=== PATIENT | male | born 1975 | race Caucasian/White ===

== ENCOUNTER 2019-12-15 11:12 | Emergency (ER) | payer OTHER ==
[2019-12-15] MEDS ORDERED: ASPIRIN 81 MG PO STA (11:35)
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
[2019-12-15 11:59] LABS: Basophils # (A) 0.1 k/uL (0-0.2); Basophils % (A) 1 %; Eosinophils # (A) 0.3 k/uL (0-0.7); Eosinophils % (A) 4 %; HCT 51.6 % (39.0-53.0); HGB 17.1 gm/dL (13.0-17.5); Lymphocytes # (A) 2.2 k/uL (1.0-4.8); Lymphocytes % (A) 28 %; MCH 28.2 pg (25.0-35.0); MCHC 33.1 g/dL (31.0-37.0); MCV 85.4 fL (80.0-100.0); Mean Platelet Volume 7.7; Monocytes # (A) 0.4 k/uL (0-1.0); Monocytes % (A) 5 %; Neutrophils # (A) 4.8 k/uL (1.3-7.7); Neutrophils % (A) 61 %; Platelet Count 206 k/uL (150-450); RBC 6.04 m/uL (4.30-5.90); RDW 13.2 % (11.5-15.5); WBC 7.9 k/uL (3.8-10.6)
[2019-12-15 12:12] LABS: ALT 26 U/L (4-49); AST 25 U/L (17-59); African American GFR (CKD) 78 (>60 ml/min/1.73 sqM); Albumin 4.4 g/dL (3.5-5.0); Alcohol <10 mg/dL; Alkaline Phosphatase 75 U/L (38-126); Anion Gap 8 mmol/L; Blood Urea Nitrogen 17 mg/dL (9-20); Calcium 9.5 mg/dL (8.4-10.2); Carbon Dioxide 27 mmol/L (22-30); Chloride 104 mmol/L (98-107); Glucose 113 mg/dL (74-99); Non-African American GFR(CKD) 67 (>60 ml/min/1.73 sqM); Potassium 4.5 mmol/L (3.5-5.1); Sodium 139 mmol/L (137-145); Total Bilirubin 0.6 mg/dL (0.2-1.3); Total Protein 7.8 g/dL (6.3-8.2)
[2019-12-15 12:16] LABS: D-Dimer 0.38 mg/L FEU (<0.60); INR 0.9 (<1.2); Partial Thromboplastin Time 23.4 sec (22.0-30.0); Prothrombin Time 9.6 sec (9.0-12.0)
[2019-12-15 12:19] LABS: Amphetamine Screen,Urine Not Detected (NotDetected); Barbiturate Screen,Urine Not Detected (NotDetected); Benzodiazepines Screen,Urine Not Detected (NotDetected); Cocaine Screen,Urine Not Detected (NotDetected); Methadone Screen, Urine Not Detected (NotDetected); Opiate Screen,Urine Not Detected (NotDetected); Oxycodone Screen, Urine Not Detected (NotDetected); Phencyclidine Screen,Urine Not Detected (NotDetected); Tricyclic Antidepressant,Urine Not Detected (NotDetected); Urn Cannabinoid Scrn Not Detected (NotDetected)
[2019-12-15 12:33] LABS: Mucus,Urine Rare /hpf; RBC,Urine 2 /hpf (0-5); WBC,Urine <1 /hpf (0-5)
[2019-12-15 12:41] LABS: Appearance,Urine Clear (Clear); Bilirubin,Urine Negative (Negative); Blood,Urine Negative (Negative); Color,Urine Yellow; Glucose,Urine (UA) Negative (Negative); Ketones,Urine Negative (Negative); Nitrite,Urine Negative (Negative); Protein,Urine Negative (Negative); Urobilinogen,Urine <2.0 mg/dL (<2.0)
[2019-12-15 12:42] LABS: Leukocyte Esterase,Urine Negative (Negative)
--- NOTE | 2019-12-15 12:47 | XR ---
EXAMINATION TYPE: XR chest 2V DATE OF EXAM: 12/15/2019 COMPARISON: NONE HISTORY: Chest pain. TECHNIQUE: Frontal and lateral views of the chest are obtained. FINDINGS: There is no focal air space opacity, pleural effusion, or pneumothorax seen. The cardiac silhouette size is mildly enlarged. Overlying EKG leads are present. The osseous structures are inta ct. IMPRESSION: Mild cardiomegaly without acute pulmonary process.
--- NOTE | 2019-12-15 13:16 | US ---
EXAMINATION TYPE: US venous doppler duplex LE LT DATE OF EXAM: 12/15/2019 1:06 PM COMPARISON: NONE CLINICAL HISTORY: pain, no injury. No redness. No swelling. No blood thinners. No injury SIDE PERFORMED: Left TECHNIQUE: The lower extremity deep venous system is examined utilizing real time linear array sonog payton with graded compression, doppler sonography and color-flow sonography. VESSELS IMAGED: External Iliac Vein (EIV) Common Femoral Vein Deep Femoral Vein Greater Saphenous Vein * Femoral Vein Popliteal Vein Small Saphenous Vein * Proximal Calf Veins (* superficial vessels) Left Leg: Negative for DVT Grayscale, color doppler, spectral doppler imaging performed of the deep veins of the left lower extr emity. There is normal flow, compressibility, vascular waveforms. IMPRESSION: No ultrasound evidence for acute DVT in left lower extremity.
[2019-12-15 13:31] VITALS: BP 137/82; PULSE 67; RESP 16; TEMP 98
== END 2019-12-15 13:29 | disposition left against medical advice (07) ==
LOC: EC 11:12
DX: R07.9 Chest pain, unspecified (principal); R55 Syncope and collapse; M79.605 Pain in left leg; I11.9 Hypertensive heart disease without heart failure; Z53.29 Procedure and treatment not carried out because of patient's decision for other reasons
CPT/HCPCS: 36415; 93005; 85379; 80053; 83735; 84484; 85025; 85610; 85730; 81003; 80306; 71046; 93971; 99285; G0480; 80320

== ENCOUNTER → 2020-01-06 | Outpatient (CLI) | payer OTHER ==
--- NOTE | 2020-01-06 13:09 | XR ---
EXAMINATION TYPE: XR cervical spine comp DATE OF EXAM: 01/06/2020 COMPARISON: None HISTORY: 44-year-old male degenerative disc disease, M50.30 TECHNIQUE: 5 views FINDINGS: No predental space widening or prevertebral soft tissue swelling. There seems to be some mild degener ative change at the C1 dens fixation. Alignment is maintained. Disc interspaces are relatively mainta ined. Minimal facet and uncovertebral joint spurring throughout. There may be mild bony neuroforamina l narrowing on the right at C6-C7. Normal odontoid view. IMPRESSION: Some scattered minimal facet and uncovertebral joint degenerative spurring. No prevertebral soft tiss ue swelling or malalignment. Changes may result in a mild right-sided neuroforaminal narrowing at C6- C7.
== END | disposition home or self-care (01) ==
LOC: RADXRMAIN 11:25
PROVIDERS: ATTEND Family Medicine
DX: M48.02 Spinal stenosis, cervical region (principal); M47.812 Spondylosis without myelopathy or radiculopathy, cervical region; M46.92 Unspecified inflammatory spondylopathy, cervical region
CPT/HCPCS: 72050

== ENCOUNTER → 2020-03-31 | Outpatient (CLI) | payer OTHER ==
--- NOTE | 2020-03-31 10:23 | CT ---
EXAMINATION TYPE: CT angio chest DATE OF EXAM: 03/31/2020 10:06 AM COMPARISON: None. HISTORY: Thoracic aortic aneurysm w/o rupture CT DLP: 740.5 mGycm Automated exposure control for dose reduction was used. CONTRAST: CTA scan of the thorax is performed with IV Contrast, patient injected with 100 mL of Isovue 370, ane urysm protocol. 3D reconstructed images are created on an independent workstation and reviewed.. FINDINGS: LUNGS: The lungs are grossly clear, there is no concerning parenchymal mass or nodule identified. T here is no pleural effusion or pneumothorax seen. The tracheobronchial tree is patent. MEDIASTINUM: There is heterogeneous enhancement of the central pulmonary arteries. There are no grea ter than 1 cm hilar or mediastinal lymph nodes. No pericardial effusion is seen. Heart size upper l imits of normal. Main pulmonary artery measures 2.8 cm in diameter axial image 24. Adjacent ascending aorta measures up to 3.4 cm in diameter. Normal 3 vessel origin from the aortic arch. No linear hypo density to suggest dissection. No aneurysm of the descending aorta. Patent bilateral single renal art eries along with celiac artery and SMA. Root of aorta measures up to 3.7 cm diameter coronal image 47 . OTHER: Liver is diffusely low dense consistent with diffuse fatty infiltration. There is simple appe aring 2.6 cm thin-walled cyst laterally right kidney axial image 72. Mild multilevel spurring in the spine. IMPRESSION: Ectasia of the aortic root up to 3.7 cm.
== END | disposition home or self-care (01) ==
LOC: RADCTMAIN 09:01
PROVIDERS: ATTEND Internal Medicine Interventional Cardiology
DX: I77.810 Thoracic aortic ectasia (principal)
CPT/HCPCS: 71275; Q9967

== ENCOUNTER 2020-06-28 20:08 | Observation (INO) | payer OTHER ==
[2020-06-28] MEDS ORDERED: SODIUM CHLORIDE 0.9% 1,000 ML IV STA (20:47)
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
[2020-06-28 21:16] LABS: African American GFR (CKD) >90 (>60 ml/min/1.73 sqM); Anion Gap 8 mmol/L; Blood Urea Nitrogen 22 mg/dL (9-20); Calcium 9.1 mg/dL (8.4-10.2); Carbon Dioxide 27 mmol/L (22-30); Chloride 102 mmol/L (98-107); Glucose 103 mg/dL (74-99); Non-African American GFR(CKD) >90 (>60 ml/min/1.73 sqM); Potassium 4.3 mmol/L (3.5-5.1); Sodium 137 mmol/L (137-145)
[2020-06-28 21:17] LABS: INR 0.9 (<1.2); Prothrombin Time 10.1 sec (9.0-12.0)
--- NOTE | 2020-06-28 21:24 | CT ---
EXAMINATION TYPE: CT brain wo con DATE OF EXAM: 06/28/2020 COMPARISON: None HISTORY: headache and visual changes CT DLP: 1094.4 mGycm Automated exposure control for dose reduction was used. Images were obtained of the brain without contrast. Ventricles have normal size. There is no mass effect nor midline shift. There is no sign of intracran ial hemorrhage. The calvarium is intact. There is minimal mucosal thickening in the ethmoid and sphen oid sinuses. There is mucus retention cyst in the right maxillary sinus. IMPRESSION: Negative CT scan of the brain. Mild sinusitis.
--- NOTE | 2020-06-28 21:25 | XR ---
EXAMINATION TYPE: XR chest 1V portable DATE OF EXAM: 06/28/2020 COMPARISON: 12/15/2019 HISTORY: Chest pain TECHNIQUE: FINDINGS: Heart and mediastinum are normal. Lungs are clear. Diaphragm is normal. Bony thorax appears normal. There are chest leads. IMPRESSION: Normal chest. No change.
[2020-06-28] MEDS ORDERED: PROPARACAINE 0.5% OPHTH DROPS 15 ML BTL BOTH EYES STA (21:37)
[2020-06-28] MEDS ORDERED: NALOXONE 0.4 MG/ML 1 ML VIAL IV PRN (21:39)
[2020-06-28] MEDS: SODIUM CHLORIDE 0.9% 1,000 ML IV SCH (21:58)
[2020-06-28 21:59] LABS: Basophils # (A) 0.1 k/uL (0-0.2); Basophils % (A) 1 %; Eosinophils # (A) 0.2 k/uL (0-0.7); Eosinophils % (A) 3 %; HCT 50.5 % (39.0-53.0); HGB 17.3 gm/dL (13.0-17.5); Lymphocytes # (A) 1.9 k/uL (1.0-4.8); Lymphocytes % (A) 23 %; MCH 28.9 pg (25.0-35.0); MCHC 34.3 g/dL (31.0-37.0); MCV 84.4 fL (80.0-100.0); Mean Platelet Volume 8.1; Monocytes # (A) 0.5 k/uL (0-1.0); Monocytes % (A) 6 %; Neutrophils # (A) 5.3 k/uL (1.3-7.7); Neutrophils % (A) 66 %; Platelet Count 203 k/uL (150-450); RBC 5.99 m/uL (4.30-5.90); RDW 13.3 % (11.5-15.5)
[2020-06-28] MEDS ORDERED: MORPHINE SULFATE 4 MG/ML SYRINGE IV PRN (22:25)
--- NOTE | 2020-06-29 10:05 | P.CNNES ---
History of Present Illness Consult date: 06/29/20 Requesting physician: Mina Multani Reason for Consult: left amaoursis fugax History of Present Illness: This is a 44-year-old gentleman with medical history of Hypertension, borderline diabetes, enlarged heart with murmur and being controlled with diet that presented to the emergency department on 06/28/2020 for an episode of left eye vision loss. Patient noticed that on 06/28/2020 he noticed headache over the bi lateral frontal region as well as left retro-orbital and he felt the headache was about 7/10, was a sharp pain, he did have photophobia but denied photophobia and the he denies any nausea or vomiting then about 1050 minutes later left eye he couldn't see anything out of it and he felt that was pitch black which lasted for 5 minutes. After that he noticed a white spot in the middle of the left eye with blurry vision of the entire left eye. While this was happening he felt he was having ringing in bilateral ear when he felt somewhat dizzy. The entire episode of his vision disturbance lasted for about 1-1-1/2 hours. He denies off any similar episodes like this before. He denies of any history of migraines. Denies history of stroke or TIAs in the past. He has not had that any further episode of vision loss since being in the hospital. He denies off any fever or cough recently. He denies of any focal weakness, numbness, difficulty getting his words out while these episodes happen, difficulty swallowing. Patient is not on any antiplatelets or statin. He denies history of stroke or TIAs in the past. The only medication is on is Lisnopril. Currently he has no headaches. Patient stated that the he's been having chest pain for the last 2 days. He denies history of tobacco use. He does have history of alcohol use and that was in the past when he was in his 20s and early 30s but has not drank for the last 3 years. Seem to the patient follows up with a assistant in nursing regarding his chest pains. Workup in the hospital consisted of: Initial vital signs blood pressure of 143/93, heart rate of 73, respiratory of 18, temperature of 98.5 Fahrenheit oral and pulse ox of 98% room air. CT of the head is reported as negative CT scan of the brain. EKG is reported as normal sinus rhythm with sinus arrhythmia. T wave abnormality, consider inferior ischemia. Abnormal EKG. White blood cell is 8.0. Sodium is 137. At initial serum glucose is 103. Calcium is 9.1. Review of Systems Review of system: The 12 point system was reviewed and apparent positive and negative per HPI. Past Medical History Past Medical History: Coronary Artery Disease (CAD), Hypertension Additional Past Medical History / Comment(s): Heart blockage History of Any Multi-Drug Resistant Organisms: None Reported Past Surgical History: Appendectomy Past Anesthesia/Blood Transfusion Reactions: No Reported Reaction Past Psychological History: No Psychological Hx Reported Smoking Status: Never smoker Past Alcohol Use History: None Reported Past Drug Use History: None Reported Medications and Allergies Home Medications Medication Instructions Recorded Confirmed Type lisinopriL [Zestril] 5 mg PO DAILY 06/28/20 06/28/20 History Allergies Allergy/AdvReac Type Severity Reaction Status Date / Time No Known Allergies Allergy Verified 06/28/20 21:09 Physical Examination - Vital Signs Vital Signs: Vital Signs Temp Pulse Pulse Resp BP BP Pulse Ox 06/29/20 07:00 98.3 F 57 L 16 119/69 96 06/29/20 01:54 98.3 F 82 18 109/62 99 06/28/20 22:40 98.2 F 72 18 129/86 96 06/28/20 22:04 98.2 F 62 18 130/76 97 06/28/20 21:21 74 20 127/83 97 06/28/20 20:17 98.5 F 73 18 143/93 98 Intake and Output 06/28/20 06/29/20 06/29/20 22:59 06:59 14:59 Other: Voiding Method Toilet Toilet # Voids 2 Weight 116.12 kg GENERAL: The patient is lying in bed and is not in acute distress. CHEST: The heart rate is regular rate rhythm. No murmurs to auscultation. No carotid bruit bilaterally. LUNG: Clear to auscultation bilaterally no wheezing noted throughout. Not labored breathing. ABDOMEN/GI: Bowel sounds present in all 4 quadrants. No tenderness to palpation throughout. NEUROLOGICAL: Higher mental function: The patient is awake, alert, oriented to self, place and time. Patient is following commands. No aphasia and no neglect. Cranial nerves: The pupils are round, equal and reactive to light and accommodation. Visual acuity is 20 OU without correction. Visual goddard are full to confrontation throughout. Extraocular movement is intact no nystagmus is noted. Facial sensation is normal to touch throughout. The facial strength is normal throughout. Hearing is normal bilaterally to hand rub. Tongue is midline and moved [id number] without any difficulty. No dysarthria is noted. Shoulder shrug is normal bilaterally. Motor: Gait is normal with normal arm swings. The strength is 5 over 5 throughout. Normal tone and bulk. Cerebellum: Normal finger to nose heel to daily bilaterally. Sensation: Sensation is normal to touch throughout. Reflexes (right/left): 2+ Plantars are downgoing bilaterally. Results Kuo virus patient are is not detected - Laboratory Findings CBC and BMP: 06/28/20 21:33 06/28/20 20:53 Abnormal Lab Findings: Abnormal Labs 06/28/20 06/28/20 20:53 21:33 RBC 5.99 H BUN 22 H Glucose 103 H Assessment and Plan Assessment: This is a 44-year-old gentleman that presented the with an episode of a headache over the bilateral frontal region as well as the left retro-orbital then after 10-15 minutes he could not see out of the left eye lasting for 5 minutes then after that he saw a white spot over the left eye with blurry vision. The entire episode lasted for an hour to an hour and half at. Associate with this episode is ringing in the in both ears and feeling dizzy. He denies any history of migraine. Episode of the transient visual disturbance over the left eye: Seems due to Amaurosis fugax. Another possibility seems atypical complicated migraine (but seem unusual since patient does not have history of migraine). Hypertension History of borderline diabetes Morbid obese Cardiomegaly Plan: The ED team started the patient on morphine 4 mg IV every 4 hours when necessary for pain. I ordered CTA of the head and neck urgent and MRI the brain as well as MR the orbits I ordered lipid panel and TSH and 2-D echo I started the patient on aspirin 81 mg, plavix 75mg daily and after 21 days to discontinue plavix and continue ASA 81mg indefinetly. Started on Lipitor 80 mg daily for secondary stroke prophylaxis. Every 4 hour neuro checks Continue cardiac monitoring Ordered ESR and CRP Ophthalmology team is consulted. The plan is discussed with the patient and his nurse. Thank you for the consultation. Sudeep Gunter MD Neuro-Hospitalist Time with Patient: Greater than 30
[2020-06-29] MEDS: ASPIRIN 81 MG PO SCH (10:58)
[2020-06-29] MEDS: CLOPIDOGREL 75 MG TAB PO SCH (10:58)
--- NOTE | 2020-06-29 11:20 | ECHOF ---
Referral Reason:stroke MEASUREMENTS -------- HEIGHT: 182.9 cm WEIGHT: 116.6 kg BP: RVIDd: 3.6 cm (< 3.3) IVSd: 1.1 cm (0.6 - 1.1) LVIDd: 4.8 cm (3.9 - 5.3) LVPWd: 1.3 cm (0.6 - 1.1) IVSs: 1.7 cm LVIDs: 2.8 cm LVPWs: 1.5 cm LA Diam: 3.5 cm (2.7 - 3.8) Ao Diam: 3.6 cm (2.0 - 3.7) AV Cusp: 2.4 cm (1.5 - 2.6) MV EXCURSION: 18.438 mm (> 18.000) MV EF SLOPE: 62 mm/s (70 - 150) EPSS: 0.4 cm MV E Gus: 0.71 m/s MV DecT: 171 ms MV A Gus: 0.66 m/s MV E/A Ratio: 1.08 RAP: 5.00 mmHg RVSP: 17.61 mmHg FINDINGS -------- Sinus rhythm. This was a techncally difficult study with suboptimal views, , Definity utilized for enhancement of i mages. LV size, wall thickness and systolic function are normal, with an EF greater than 55%. The left adryan tricular size is normal. The right ventricle is normal in size. The left atrial size is normal. The right atrial size is normal. The aortic valve is trileaflet, and appears structurally normal. No aortic stenosis or regurgitation. Mild mitral regurgitation is present. Mild tricuspid regurgitation present. Right ventricular systolic pressure is normal at < 35 mmHg. The pulmonic valve was not well visualized. The aortic root size is normal. There is no pericardial effusion. CONCLUSIONS -------- 1. This was a techncally difficult study with suboptimal views, , Definity utilized for enhancement o f images. 2. LV size, wall thickness and systolic function are normal, with an EF greater than 55%. 3. The left ventricular size is normal. 4. The right ventricle is normal in size. 5. The left atrial size is normal. 6. The right atrial size is normal. 7. Mild mitral regurgitation is present. 8. Mild tricuspid regurgitation present. 9. The pulmonic valve was not well visualized. 10. The aortic root size is normal. 11. There is no pericardial effusion. BINDERY OPERATOR: Marla Clemente RDCS
--- NOTE | 2020-06-29 13:18 | CT ---
EXAMINATION TYPE: CT angio head neck DATE OF EXAM: 06/29/2020 HISTORY: REYES, ringing in ears, loss of vision Rt eye COMPARISON: CT DLP: 515.4 mGycm. Automated Exposure Control for Dose Reduction was Utilized. TECHNIQUE: CTA scan of the neck is performed with IV Contrast, patient injected with 65 mL of Isovue 370, axial images are obtained, coronal and sagittal reformatted images are reviewed. Three-D recons tructed images are created on an independent workstation and reviewed. Source images are reviewed. FINDINGS: Carotid/Vascular Structures: There is a three-vessel arch. Vertebral arteries are codominant. Carotid bifurcations appear normal without significant flow-limiting stenosis. Internal carotid arteries are patent to the skull base. Cervical of [place]: Vertebral basilar system appears normal. Posterior cerebral vasculature is unrema rkable. Internal carotid arteries bifurcate normally into A1 and M1 segments. The left A1 segment is hypoplastic. A2 segments are normal. The anterior communicating artery is patent. Left Posterior comm unicating artery is patent. Right posterior communicating artery is absent. Other: Mucosal thickening is throughout ethmoid air cells. Correlate for ethmoiditis. IMPRESSION: 1. No flow-limiting stenosis bilateral carotid bifurcations. 2. Normal [place]
[2020-06-29 13:31] LABS: C Reactive Protein <5.0 mg/L (<10.0)
[2020-06-29] MEDS ORDERED: ACETAMINOPHEN TAB 325 MG TAB PO PRN (13:50)
[2020-06-29 15:16] LABS: Cholesterol 184 mg/dL (<200); HDL Cholesterol 32 mg/dL (40-60); LDL Cholesterol,Calculated 111 mg/dL (0-99); Triglycerides 206 mg/dL (<150)
--- NOTE | 2020-06-29 15:30 | HP ---
HISTORY AND PHYSICAL Left-sided amaurosis fugax was seen in the emergency room with history hypertension and borderline diabetes and large heart with murmur, diabetic controlled diet. He came in for an episode of left vision loss. He noticed a headache over the bilateral frontal region of his head and around his left eye, sharp pain, 7/10, photophobia. Denied any nausea, vomiting. Could not see anything out of it. Pitch black for 5 minutes after that he noticed a white spot in the middle of his left eye with blurry vision and tired left eye. He was having ringing in bilateral ears, felt somewhat dizzy. A similar episode like this before for about an hour and a half in the past. Denies any history of migraines or strokes or TIA. No further vision loss while being in the hospital. No fever, cough, chills. Denies any focal weakness, numbness, difficulty getting words out. He is not on any antiplatelets or statins. He denies any history of strokes or TIAs. PAST MEDICAL HISTORY: Coronary artery disease, hypertension, history of heart blockage. PAST SURGICAL HISTORY: Appendectomy. ALLERGIES: Negative. MEDICINES AT HOME: Lisinopril 5 mg daily. SOCIAL HISTORY: No smoking. He has a history of alcohol use in the 20s. Has not drank in the last 3 years. He sees Cardiology for chest pains in the past. REVIEW OF SYSTEMS: Fourteen-point review of systems otherwise is negative. PHYSICAL EXAMINATION: Blood pressure 143/93, heart rates in the 70s respiratory rate 16 to 18, temperature 98.5, saturating 98 on room air. He is in no acute distress. CARDIAC: Regular rate and rhythm. LUNGS: Clear . GI: Soft. No tenderness to palpation. NEUROLOGIC: Alert and oriented x3. Follows commands. No aphasia or neglect. Pupils equal, round, reactive. Facial strength normal. Tongue midline. Gait is normal. Cerebellum negative. Reflexes are normal. Plantars are downgoing. He had negative CAT scan of the head. EKG shows sinus arrhythmia. Sodium 137, calcium 9.1. Glucose 103. White cells 8. COVID is negative. ASSESSMENT: 1. Transient visual disturbance of the left eye, possibly due to amaurosis fugax, possible complicated migraine. 2. Hypertension. 3. History of borderline diabetes. 4. Obesity. 5. Cardiomegaly. CT of the head and neck and MRI of the brain have been ordered. Wait for Neurology recommendations. Neurology start him on aspirin and Plavix. Please see further orders. They started him on Lipitor 80 mg for stroke prophylaxis. Please see further orders. MMODL / IJN: [id number] /
--- NOTE | 2020-06-29 17:25 | MR ---
EXAMINATION TYPE: MR brain/orbits wo con DATE OF EXAM: 06/29/2020 COMPARISON: CT brain 06/28/2020 HISTORY: Stroke: transient left vision loss CONTRAST: Performed utilizing 0 mL intravenous Gadavist gadolinium contrast. TECHNIQUE: Multiplanar, multiecho imaging on a 3.0 Jill magnet is performed through the brain. Stud y is not performed within 24 hours of arrival to the hospital. The craniovertebral junction is normal. The pituitary is normal. Optic chiasm is visualized appears normal. Diffusion-weighted imaging is performed. No abnormal hyperintensity is present to suggest an acute i ntracranial infarct or acute ischemic change. There is a punctate subcortical white matter change in the right parietal lobe. Series 501 image 19 t his is not out of proportion to patient's age. This is nonspecific but could be seen with migraine he adaches. Microvascular ischemic change and vasculitis could be considered. Other etiologies are not e xcluded. Ventricles and sulci are appropriate for the patient age. There is a retention cyst within the right maxillary sinus. Some mild mucosal thickening is within sc attered ethmoid air cells. The globes are symmetrical. Extraocular muscles appear unremarkable. Intraconal and extraconal fat ap pears normal. Lacrimal glands appear unremarkable. Superior ophthalmic veins appear unremarkable as v isualized. Ophthalmic arteries as visualized appear abnormal flow voids no optic radiation changes ar e evident. IMPRESSIONS: 1. Noncontrast MRI brain appears within normal limits. 2. MRI of the orbits are normal.
[2020-06-29] MEDS ORDERED: ATORVASTATIN 80 MG TAB PO SCH (21:00)
--- NOTE | 2020-06-29 22:03 | CONS ---
CONSULTATION HISTORY: This is a 44-year-old gentleman with a history of borderline diabetes and hypertension. The patient states he has also been diagnosed with an enlarged heart and an accompanying murmur. The diabetes is currently controlled through diet only. The patient stated that on June 28, 2020, he experienced an episode of vision loss in his left eye. The patient stated that the peripheral vision began to blacken, and eventually only the center portion of his vision remained, which was then followed by loss of the center of vision with only a bright white dot in the center of his vision of the left eye. The patient states that this was accompanied by a severe headache that extended into the frontal areas of both sides of his head as well as the posterior orbital region of the left side of his head. The patient states that he did not experience any nausea, though the headache remained for several hours. The patient states that the visual loss slowly resolved and eventually the acuity improved; however, he still noticed some blurriness in the center portion of his vision corresponding to the area of the white dot. The patient states that this entire episode lasted approximately 2 hours. Previous history was significant for a similar episode that occurred during intercourse one year ago. The patient denied any history of migraines in the past. He is currently resting comfortably with full recovery of his vision and no additional episodes. PHYSICAL EXAMINATION: Visual acuity measured 20/20 bilaterally. The pupils were equal and reactive to the light. There was no afferent defect. Extraocular movements were full to all gaze positions. The patient denied diplopia in any gaze position. On penlight exam, the lids were normal. The conjunctiva was quiet. Both corneas were clear. The anterior chambers were deep and quiet. The iris was normal. The lenses appeared centered. Fundus exam revealed normal-appearing maculae vessels and discs. IMPRESSION: Temporary loss of vision. I agree this patient should undergo evaluation of his circulatory system, and an MRI and CTA have been performed. The possibility of an ocular migraine is also significant, and I will defer to Neurology as to how treatment may occur moving forward. I would be happy to see this patient in the office and perform a more definitive visual field analysis upon discharge. MMODL / IJN: [id number] /
[2020-06-29] MEDS: SODIUM CHLORIDE 0.9% 1,000 ML IV SCH (22:24)
[2020-06-30 03:53] LABS: Hemoglobin A1C 5.7 % (4.0-6.0)
[2020-06-30 08:06] VITALS: PULSE 66; RESP 18
[2020-06-30] MEDS: ASPIRIN 81 MG PO SCH (08:46)
[2020-06-30] MEDS: CLOPIDOGREL 75 MG TAB PO SCH (08:46)
--- NOTE | 2020-06-30 09:46 | P.CRDCN ---
History of Present Illness Consult date: 06/30/20 History of present illness: HISTORY OF PRESENT ILLNESS: This is a 44-year-old male with a past medical history significant for hypertension and diet-controlled diabetes. Patient follows in the office with Dr. Cantu. We have been asked to see the patient in consultation for loss of vision in left eye. Patient examined at the bedside. Patient states he was sitting at at a table yesterday when he began to get a headache over both of his eyes. He reports he then started to have a lot of pain behind his left eye. Subsequently he suddenly lost vision in his left eye only. He states this lasted for approximately 15 minutes. His vision then returned but he states he had a "white [place]" in the middle of his eye and the surrounding vision was hazy. He states this lasted for approximately 1 hour and then his vision returned to normal. He has not had any further loss of vision since been in the hospital. He does report a very mild left-sided headache this morning that he is currently rating 1/10. EKG reveals sinus mechanism with T-wave inversions in inferior leads Chest xray negative for acute process Laboratory data: WBC 8.0, Hemoglobin 17.3, Platelet count 230, Sodium 137, Potassium 4.3, BUN 22, Creatinine 0.95, troponin negative 1 Current home cardiac medications include lisinopril 5 mg daily. Most recent echocardiogram reveals ejection fraction greater than 55%, mild mitral regurgitation, mild tricuspid regurgitation Patient underwent treadmill exercise stress test in February 2020 which was negative for ischemia. CT angiogram head and neck: Negative MRI of the brain: Negative for acute process REVIEW OF SYSTEMS: At the time of my exam: CONSTITUTIONAL: Denies fever or chills. HEENT: Denies blurred vision, vision changes, or eye pain. Denies hemoptysis CARDIOVASCULAR: Denies chest pain. Denies orthopnea. Denies PND. Denies palpitations RESPIRATORY: Denies shortness of breath. GASTROINTESTINAL: Denies abdominal pain. Denies nausea or vomiting. HEMATOLOGIC: Denies bleeding disorders. GENITOURINARY: Denies any blood in urine. SKIN: Denies pruitis. Denies rash. PHYSICAL EXAM: VITAL SIGNS: Reviewed. GENERAL: Well-developed in no acute distress. HEENT: Head is normocephalic. Pupils are equal, round. Sclerae anicteric. Mucous membranes of the mouth are moist. Neck supple. No JVD or thyromegaly LUNGS: Respirations even and unlabored. Lungs essentially clear to auscultation bilaterally. HEART: Regular rate and rhythm. S1 and S2 heard. Systolic murmur noted. ABDOMEN: Soft. Nondistended. Nontender. EXTREMITIES: Normal range of motion. No clubbing or cyanosis. Peripheral pulses intact. No lower extremity edema NEUROLOGIC: Awake and alert. Oriented x 3. ASSESSMENT: Amaurosis fugax Hypertension Diet-controlled diabetes PLAN: Neurology following. Patient has been started on aspirin, Plavix, and Lipitor Recommend LIDYA. Patient would like to be discharged home today. Agreeable to discharge home today. Patient is to follow-up outpatient with Dr. Cantu and outpatient LIDYA will be scheduled. Nurse practitioner note has been reviewed by physician. Signing provider agrees with the documented findings, assessment, and plan of care. Past Medical History Past Medical History: Coronary Artery Disease (CAD), Hypertension Additional Past Medical History / Comment(s): Heart blockage History of Any Multi-Drug Resistant Organisms: None Reported Past Surgical History: Appendectomy Past Anesthesia/Blood Transfusion Reactions: No Reported Reaction Past Psychological History: No Psychological Hx Reported Smoking Status: Never smoker Past Alcohol Use History: None Reported Past Drug Use History: None Reported Medications and Allergies Home Medications Medication Instructions Recorded Confirmed Type lisinopriL [Zestril] 5 mg PO DAILY 06/28/20 06/28/20 History Allergies Allergy/AdvReac Type Severity Reaction Status Date / Time No Known Allergies Allergy Verified 06/28/20 21:09 Physical Exam Vitals: Vital Signs Temp Pulse Resp BP Pulse Ox 06/30/20 07:00 98.2 F 66 18 120/71 97 06/30/20 02:00 97.9 F 80 16 119/65 97 06/29/20 20:00 98.9 F 62 16 124/69 98 06/29/20 14:00 98.6 F 61 16 121/79 96 Intake and Output 06/29/20 06/30/20 06/30/20 22:59 06:59 14:59 Other: Voiding Method Toilet Toilet # Voids 1 1 Results 06/28/20 21:33 06/28/20 20:53 Lipids 06/29/20 Range/Units 11:20 Triglycerides 206 H (<150) mg/dL Cholesterol 184 (<200) mg/dL HDL Cholesterol 32 L (40-60) mg/dL Current Medications Generic Name Dose Route Start Last Admin Trade Name Freq PRN Reason Stop Dose Admin Acetaminophen 650 mg 06/29/20 13:50 Acetaminophen Tab 325 Mg Tab PO Q6HR PRN Fever and/ or Pain Aspirin 81 mg 06/29/20 10:15 06/30/20 08:46 Aspirin 81 Mg PO 81 mg DAILY CASEY Administration Atorvastatin Calcium 80 mg 06/29/20 21:00 06/29/20 19:29 Atorvastatin 80 Mg Tab PO Not Given HS CASEY Clopidogrel Bisulfate 75 mg 06/29/20 10:15 06/30/20 08:46 Clopidogrel 75 Mg Tab PO 75 mg DAILY CASEY Administration Sodium Chloride 1,000 mls @ 20 mls/hr 06/28/20 21:45 06/29/20 22:24 Saline 0.9% IV Not Given .Q24H CSAEY Morphine Sulfate 4 mg 06/28/20 22:25 Morphine Sulfate 4 Mg/Ml Syringe IV Q6H PRN Pain Naloxone HCl 0.2 mg 06/28/20 21:39 Naloxone 0.4 Mg/Ml 1 Ml Vial IV Q2M PRN Opioid Reversal Intake and Output 06/29/20 06/30/20 06/30/20 22:59 06:59 14:59 Other: Voiding Method Toilet Toilet # Voids 1 1 06/28/20 21:33 06/28/20 20:53
--- NOTE | 2020-06-30 11:24 | P.PN ---
Subjective Progress Note Date: 06/30/20 The was seen at bedside and since the patient's been the hospital he has not had any further episodes of visual disturbance over the left eye or any visual disturbance. Patient denies of any further episodes of headaches. He feels that he is back to baseline. Objective - Vital Signs Vital signs: Vital Signs Temp 98.2 F 06/30/20 07:00 Pulse 66 06/30/20 07:00 Resp 18 06/30/20 07:00 BP 120/71 06/30/20 07:00 Pulse Ox 97 06/30/20 07:00 Intake & Output 06/29/20 06/30/20 06/30/20 18:59 06:59 18:59 Other: Voiding Method Toilet Toilet # Voids 2 1 - Labs CBC & Chem 7: 06/28/20 21:33 06/28/20 20:53 Labs: Abnormal Lab Results - Last 24 Hours (Table) 06/29/20 Range/Units 11:20 Triglycerides 206 H (<150) mg/dL LDL Cholesterol, Calc 111 H (0-99) mg/dL HDL Cholesterol 32 L (40-60) mg/dL Assessment and Plan Assessment: This is a 44-year-old gentleman that presented the with an episode of a headache over the bilateral frontal region as well as the left retro-orbital then after 10-15 minutes he could not see out of the left eye lasting for 5 minutes then after that he saw a white spot over the left eye with blurry vision. The entire episode lasted for an hour to an hour and half at. Associate with this episode is ringing in the in both ears and feeling dizzy. He denies any history of migraine. Episode of the transient visual disturbance over the left eye: Seems due to Amaurosis fugax and unknown exact cause. Another possibility seems ocular migraine (but seem unusual since patient does not have history of migraine). Hypertension Dyslipidemia History of borderline diabetes Morbid obese Cardiomegaly Plan: The ED team started the patient on morphine 4 mg IV every 4 hours when necessary for pain. CT of the head and neck was reported as no flow-limiting stenosis bilateral carotid bifurcation appeared normal [place]. MRI of the brain is reported as noncontrast MRI brain at appears within normal limits MRI of the orbits is reported as are normal 2-D echo was reported as left ventricle size, wall thickness and systolic function are normal with ejection fraction less than 55. Left ventricular size is normal. Left atrium size is normal. TSH is 1.31 which is normal. Lipid panel is triglycerides 206, cholesterol is 184, LDL is 111 and HDL 32. ESR: 6 (normal). CRP <5 (normal). HbA1c: 5.7 (normal). Continue aspirin 81 mg, plavix 75mg daily for 21 days and after 21 days to discontinue plavix and continue ASA 81mg indefinetly. Will decrease Lipitor 80 mg to 40mg daily for secondary stroke prophylaxis. Dr. Suarez from ophthalmology without the patient and they stated is temporary loss of vision and they stated for the patient to undergo MRI CTAs and that is a possibility of ocular migraine is also significant and for the patient to follow-up with ophthalmology as an outpatient. Cardiology is the patient and they want to get LIDYA but the patient would like to be discharged home today so it is planned for IT to be done as an outpatient. Patient needs to follow-up with the neurology as an outpatient within 1-2 weeks. There is no further workup from a neurology perspective and the patient is clear from a neurology perspective. The plan is discussed with the patient and his nurse. Sudeep Gunter MD Neuro-Hospitalist Time with Patient: Less than 30
[2020-06-30 13:55] VITALS: BP 147/99; TEMP 98.1
--- NOTE | 2020-06-30 13:57 | DS ---
DISCHARGE SUMMARY DISCHARGE DIAGNOSES: 1. Amaurosis fugax. 2. Hypertension. 3. Blurred vision. 4. Possible ocular migraine. HOME MEDICINES: 1. Aspirin 81 mg daily. 2. Lipitor 40 mg daily. 3. Plavix 75 mg daily for 21 days only. 4. Lisinopril 5 mg daily. CONDITION: Stable. PROGNOSIS: Guarded. AMBULATE: As tolerated. A 44-year-old white male came to the hospital with amaurosis fugax. Diagnosis MRI of the brain normal. CTA of the carotid arteries and brain normal. Echo normal. He will follow up with a LIDYA with Cardiology as an outpatient. He was seen by Neurology, Cardiology and Ophthalmology. Will follow up as an outpatient with them. Continue on the medications as mentioned above, diet, no smoking, weight loss. Please see further orders. MMODL / IJN: [id number] /
[2020-06-30] MEDS ORDERED: ATORVASTATIN 40 MG TAB PO SCH (21:00)
== END 2020-06-30 14:10 | disposition home or self-care (01) ==
LOC: EC 20:08 → 6NMEDSUR 21:40
PROVIDERS: ADMIT Family Medicine; ATTEND Family Medicine
DX: G45.3 Amaurosis fugax (principal); I10 Essential (primary) hypertension; R07.89 Other chest pain; I51.7 Cardiomegaly; I25.10 Atherosclerotic heart disease of native coronary artery without angina pectoris; E78.5 Hyperlipidemia, unspecified; E66.01 Morbid (severe) obesity due to excess calories; J34.89 Other specified disorders of nose and nasal sinuses; Z79.899 Other long term (current) drug therapy; Z79.82 Long term (current) use of aspirin; Z79.02 Long term (current) use of antithrombotics/antiplatelets; Z20.822 Contact with and (suspected) exposure to COVID-19
CPT/HCPCS: 96360; 99285; 36415; 93005; 80061; 80048; 85652; 84443; 84484; 85025; 85610; 85730; 86140; 83036; 87635; 71045; 70496; 70450; 70498; 70540; 70551; G0378 ×3; C8929; Q9950; Q9967; 93306

== ENCOUNTER 2020-07-11 10:55 | Day surgery (SDC) | payer OTHER ==
[2020-07-06 16:21] VITALS: BMI 35.3
[2020-07-11] MEDS ORDERED: SODIUM CHLORIDE 0.9% 1,000 ML IV ONE (11:09)
[2020-07-11 11:14] VITALS: RESP 16; TEMP 98.9
[2020-07-11] MEDS ORDERED: fentaNYL (PF) 50 MCG/ML 2 ML AMP ONE (11:17)
[2020-07-11] MEDS: fentaNYL (PF) 50 MCG/ML 2 ML AMP IVP ONE ×2 (11:40→11:47)
[2020-07-11] MEDS ORDERED: MIDAZOLAM 2 MG/2 ML VIAL IVP ONE ×2 (11:40→11:47)
[2020-07-11] MEDS: BENZOCAINE SPRAY 1 CAN MUCOUS MEM ONE ×2 (11:40→11:42)
--- NOTE | 2020-07-11 12:40 | ECHOT ---
TRANSESOPHAGEAL ECHOCARDIOGRAM DATE OF SERVICE: July 11, 2020. PROCEDURE PERFORMED: Transesophageal echocardiogram. INDICATION: This is a 44-year-old gentleman who was admitted to the hospital with an episode of amaurosis fugax. He was discharged in stable medical condition. He is here to have a LIDYA and rule out any cardiac source of embolization. COMPLICATION: None. LEVEL OF SEDATION: Moderate with sedation length of 16 minutes. PROCEDURE DESCRIPTION: After obtaining an informed consent, the patient was brought to the LIDYA room. A pulse oximetry and heart rate monitors were attached to the patient and subsequently the patient was turned into left lateral position. A bite guard was placed after the patient's throat was sprayed using lidocaine. After that, the transesophageal echocardiogram probe was advanced through the bite guard to the mid esophageal where 2D echocardiogram images as well as color Doppler images as well as pulse and continuous-wave Doppler images were obtained from various angles. The procedure was completed without any complication. FINDINGS: The left ventricular dimension and systolic function appeared to be within normal limits. The right ventricle appeared to be within normal limits for dimension as well. The left atrium appeared to be mildly dilated. The left atrial appendage appeared to be free from any clots. The interatrial septum appeared to have a small patent foramen ovale with evidence of [id number] shunt. The aortic valve is trileaflet valve without stenosis or regurgitation. The mitral valve seems to be mildly thickened with mild to moderate MR. There was mild tricuspid regurgitation seen and mild pulmonic insufficiency. CONCLUSION: 1. Small patent foramen ovale with evidence of xeulw-xa-[id number] shunt was identified with contrast study. 2. Normal left ventricular dimension and systolic function. 3. Normal right ventricular dimension and systolic function. 4. Mild to moderate mitral regurgitation. 5. Trileaflet aortic valve without stenosis or regurgitation. 6. Normal tricuspid valve and pulmonic valve. 7. Normal left atrial appendage. MMODL / IJN: [id number] /
[2020-07-11 13:47] VITALS: BP 108/68; PULSE 70
== END 2020-07-11 12:50 | disposition home or self-care (01) ==
LOC: CATHCVL 10:55
PROVIDERS: ATTEND Internal Medicine Interventional Cardiology
DX: Q21.1 Atrial septal defect (principal); G45.3 Amaurosis fugax; I10 Essential (primary) hypertension; E78.5 Hyperlipidemia, unspecified; Z79.82 Long term (current) use of aspirin; Z79.899 Other long term (current) drug therapy; I34.0 Nonrheumatic mitral (valve) insufficiency; Z79.02 Long term (current) use of antithrombotics/antiplatelets
CPT/HCPCS: 93312; 93320; 93325; J2250; J3010

== ENCOUNTER 2020-07-25 06:33 | Day surgery (SDC) | payer OTHER ==
[2020-07-21 15:04] VITALS: BMI 34.8
[~2020-07-25 06:33] MED LIST: SODIUM CHLORIDE 0.9% 1,000 ML IV SCH
[2020-07-25] MEDS ORDERED: SODIUM CHLORIDE 0.9% 1,000 ML IV ONE (06:52)
[2020-07-25] MEDS ORDERED: fentaNYL (PF) 50 MCG/ML 2 ML AMP ONE (07:13)
[2020-07-25] MEDS ORDERED: MIDAZOLAM 2 MG/2 ML VIAL IVP ONE ×2 (07:24→07:33)
[2020-07-25] MEDS ORDERED: MIDAZOLAM 1 MG/ML 5 ML VIAL IV STA ×2 (07:25→07:29)
[2020-07-25] MEDS ORDERED: fentaNYL (PF) 50 MCG/ML 2 ML AMP IVP ONE ×2 (07:25→07:26)
[2020-07-25] MEDS ORDERED: MIDAZOLAM 2 MG/2 ML VIAL IV ONE ×2 (07:56→09:01)
[2020-07-25] MEDS ORDERED: LIDOCAINE 1% INJ 10MG/ML (20 ML MDV) SQ ONE (07:59)
[2020-07-25] MEDS ORDERED: HYDROmorphone 0.5 MG/0.5 ML SYRINGE IVP ONE (08:35)
[2020-07-25] MEDS ORDERED: IOPAMIDOL-370 50ML BTL INJ ONE (09:21)
[2020-07-25] MEDS ORDERED: SODIUM CHLORIDE 0.9% 1,000 ML IV SCH (09:30)
[2020-07-25] MEDS ORDERED: CLOPIDOGREL 75 MG TAB PO ONE (09:30)
--- NOTE | 2020-07-25 09:34 | P.PCN ---
Date of Procedure: 07/25/20 Operative Findings: PERCUTANEOUS CLOSURE OF PATENT FORAMEN OVALE (PFO) PERFORMING PHYSICIAN: Paul Cantu MD, [facility] PROCEDURE PERFORMED: 1. Successful percutaneous closure of Patent Foramen Ovale (PFO) using 25 mm Amplatzer PFO Occluder with an excellent results and without any residual shunt. 2. Intracardiac echocardiogram imaging. 3. Right atrial angiogram. INDICATION: This is a very pleasant 44-year-old male patient was diagnosed SFA with a stroke. She underwent transesophageal echocardiogram which revealed a PFO. He was brought today to undergo percutaneous closure. APPROACH: Right common femoral vein and left common femoral vein COMPLICATION: None. LEVEL OF SEDATION: Moderate with sedation length of 89 minutes. PROCEDURE DESCRIPTION: After obtaining informed consent, the patient was brought to the cardiac rn lab. The right common femoral vein was cannulated x2 using micropuncture technique under ultrasound guidance, the micropuncture wire passed easily, then I placed two 8-Rwandan sheath in the right groin. Subsequently I cannulated the left common femoral vein with the same technique and I placed an 8-Rwandan sheath there as well. At that point, anticoagulation was initiated using heparin and the patient was given a bolus of 10,000 units of heparin IV with continuous ACT monitoring throughout the procedure. After that, the intracardiac echocardiogram probe was advanced through one of the venous sheath all the way to the right atrium where we did interrogate the interatrial septum and identified the patent foramen ovale which was measured about 20 mm. Subsequently, I did cross the patent foramen ovale using 0.035 J-wire with the backup support of multipurpose catheter. The wire was advanced all the way to the left upper pulmonary vein and subsequently the catheter was advanced over the wire to the left upper pulmonary vein. The 0.035 J-wire was pulled out and then I advanced a chelsey wire. Subsequently, the multipurpose catheter was withdrawn out and the wire was left in the left upper pulmonary vein. After that, I did prep the Amplatzer PFO occluder under saline. The device was loaded into the brick loader, which was attached to the sheath. Subsequently, I did exchange my 8-Rwandan sheath into the Shuttle sheath over a 0.035 chelsey wire. The sheath was advanced all the way under fluoroscopy guidance to the left atrium. Subsequently, the dilator of the sheath was withdrawn out along with the wire. After that, I did load the Amplatzer PFO occluder under continuous saline flush to the sheath. The device was advanced all the way through the sheath were I did where I did deploy initially the left atrial occluder and then I pulled back the sheath and the left atrial occluder all the way to the interatrial septum and then I deployed the right atrial occluder after that. Before I released the device, I did interrogate the septum using ice images on multiple views. After I realized that the device was stable enough and in good position the device was released. Interrogation using ice was also performed after the device was released. By the end I did right atrial angiogram. The procedure was completed without any complication. POSTPROCEDURE MANAGEMENT: 1. Dual anti-platelet therapy. 2. An echo in 24 hours, in 1 week, in 4 weeks, as well as in 6 months. 5. Follow up
[2020-07-25] MEDS ORDERED: LORazepam 2 MG/ML INJ IV PRN (16:27)
[2020-07-25] MEDS ORDERED: ACETAMINOPHEN TAB 500 MG TAB PO STA (17:23)
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
[2020-07-26 07:53] VITALS: BP 138/85; PULSE 76; RESP 14; TEMP 97.6
[2020-07-26 08:24] LABS: HGB 16.5 gm/dL (13.0-17.5); MCH 29.4 pg (25.0-35.0); MCHC 35.1 g/dL (31.0-37.0); MCV 83.7 fL (80.0-100.0); Mean Platelet Volume 7.4; Platelet Count 172 k/uL (150-450); RBC 5.61 m/uL (4.30-5.90); RDW 13.1 % (11.5-15.5); WBC 6.8 k/uL (3.8-10.6)
[2020-07-26 08:35] LABS: African American GFR (CKD) >90 (>60 ml/min/1.73 sqM); Anion Gap 6 mmol/L; Blood Urea Nitrogen 15 mg/dL (9-20); Calcium 9.1 mg/dL (8.4-10.2); Carbon Dioxide 28 mmol/L (22-30); Chloride 104 mmol/L (98-107); Glucose 97 mg/dL (74-99); Non-African American GFR(CKD) >90 (>60 ml/min/1.73 sqM); Potassium 4.1 mmol/L (3.5-5.1); Sodium 138 mmol/L (137-145)
[2020-07-26] MEDS ORDERED: ASPIRIN 325 MG TAB PO SCH (09:00)
[2020-07-26] MEDS ORDERED: CLOPIDOGREL 75 MG TAB PO SCH (09:00)
--- NOTE | 2020-07-26 09:51 | DS ---
DISCHARGE SUMMARY ADMISSION DATE: July 25, 2020. DISCHARGE DATE: July 26, 2020. BRIEF HISTORY: This is a 44-year-old gentleman who underwent yesterday successful percutaneous closure of patent foramen ovale using 25 mm Amplatzer PFO occluder with an excellent angiographic results. The procedure was performed from the right groin. The right groin is soft with mild tenderness, but no discrete hematoma. An echocardiogram is in process to be done in this morning. The patient is going to be discharged on dual anti-platelet therapy and I will follow up with him in the office. The patient is not going to be discharged home before the echocardiogram is going to be performed. MMODL / IJN: [id number] /
--- NOTE | 2020-07-26 10:40 | US ---
EXAMINATION TYPE: US venous doppler duplex LE RT DATE OF EXAM: 07/26/2020 7:18 AM COMPARISON: NONE CLINICAL HISTORY: 44-year-old male rule out DVT SIDE PERFORMED: Right TECHNIQUE: The lower extremity deep venous system is examined utilizing real time linear array sonog payton with graded compression, doppler sonography and color-flow sonography. VESSELS IMAGED: Common Femoral Vein Deep Femoral Vein Greater Saphenous Vein * Femoral Vein Popliteal Vein Small Saphenous Vein * Proximal Calf Veins (* superficial vessels) Right Leg: Negative for DVT as visualized. Limited images at the groin as patient had a procedure wi th groin puncture yesterday and is very tender. IMPRESSION: Limited assessment of the groin/lower external iliac vein due to recent procedure. Otherwise, no DVT visualized down to the upper calf.
--- NOTE | 2020-07-26 10:41 | XR ---
EXAMINATION TYPE: XR chest 2V DATE OF EXAM: 07/26/2020 COMPARISON: 06/28/2020 HISTORY: 44-year-old male ASD/PFO placement TECHNIQUE: PA and lateral views FINDINGS: Heart normal size. Aorta and pulmonary vasculature within normal limits. PFO device now noted. No con solidation or pleural effusion. IMPRESSION: Interval placement of PFO closure device. No acute process seen.
--- NOTE | 2020-07-26 10:55 | ECHOF ---
Referral Reason:Post ASD/PFO Insertion MEASUREMENTS -------- HEIGHT: 182.9 cm WEIGHT: 117.0 kg BP: FINDINGS -------- Limited Echo for placement of device for PFO closure. CONCLUSIONS -------- 1. Limited Echo for placement of device for PFO closure. FISH NET MAKER: Marla Clemente RDCS
== END 2020-07-26 10:36 | disposition home or self-care (01) ==
LOC: CATHCVL 06:33 → 3SCARD 11:14 → CATHCVL 07-26 10:36
PROVIDERS: ATTEND Internal Medicine Interventional Cardiology
DX: Q21.1 Atrial septal defect (principal); I10 Essential (primary) hypertension; E78.5 Hyperlipidemia, unspecified; Z86.73 Personal history of transient ischemic attack (TIA), and cerebral infarction without residual deficits; Z79.02 Long term (current) use of antithrombotics/antiplatelets; Z79.82 Long term (current) use of aspirin; Z79.899 Other long term (current) drug therapy
CPT/HCPCS: 93306; 93580; 93662; 86900; 86901; 80048; 85027; 86850; 71046; 93971; C1769 ×6; C1894; C1817; C1759; J2250; J2060; J0690; J2001; J3010; J1644; J1170; Q9967

== ENCOUNTER 2020-11-12 10:14 | Emergency (ER) | payer OTHER ==
[2020-11-12 10:19] VITALS: RESP 18; TEMP 98.7
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
--- NOTE | 2020-11-12 10:58 | XR ---
EXAMINATION TYPE: XR foot complete LT DATE OF EXAM: 11/12/2020 COMPARISON: None HISTORY: Pain, couch fell on foot and rolled ankle TECHNIQUE: Three-view left foot FINDINGS: Small plantar calcaneal heel spur is present. Soft tissues are normal. Alignment is preserv ed. Joint spaces are preserved. No acute fractures or dislocations are evident. Follow up exams can be performed 7-10 days from acute trauma for continued pain. IMPRESSION: 1. No acute fracture left foot 2. Plantar calcaneal heel spur
--- NOTE | 2020-11-12 10:59 | XR ---
EXAMINATION TYPE: XR ankle complete LT DATE OF EXAM: 11/12/2020 COMPARISON: None HISTORY: Couch came down on foot and rolled ankle with pain TECHNIQUE: Three-view left ankle FINDINGS: Ankle mortise is intact. Soft tissues are normal. No acute fracture or dislocation is evide nt. Plantar calcaneal heel spur is noted. Follow up exams can be performed 7-10 days from acute trauma for continued pain. IMPRESSION: 1. No acute osseous abnormality left ankle
[2020-11-12 11:40] VITALS: BP 124/77; PULSE 79
== END 2020-11-12 11:40 | disposition home or self-care (01) ==
LOC: EC 10:14
DX: M79.672 Pain in left foot (principal); I10 Essential (primary) hypertension; E78.5 Hyperlipidemia, unspecified; I25.10 Atherosclerotic heart disease of native coronary artery without angina pectoris; M19.90 Unspecified osteoarthritis, unspecified site; F41.9 Anxiety disorder, unspecified; Z79.02 Long term (current) use of antithrombotics/antiplatelets; Z79.82 Long term (current) use of aspirin
CPT/HCPCS: 29515; 99283